=== PATIENT | male | born 1960 | race Caucasian/White ===

== ENCOUNTER 2019-10-10 11:22 | Emergency (ER) | payer BC, OTHER ==
--- NOTE | 2019-10-10 11:49 | EDM.PDOC ---
ED HPI GENERAL MEDICAL PROBLEM - General Chief Complaint: Abdominal Pain Stated Complaint: abdominal pain Time Seen by Provider: 10/10/19 11:34 Source of Information: Reports: Patient History Limitations: Reports: No Limitations - History of Present Illness INITIAL COMMENTS - FREE TEXT/NARRATIVE: Patient is a 59-year-old male who presents presents to the ER with complaints of generalized abdominal pain, worse in the left lower quadrant. The symptoms have been occurring since . Patient states that he feels that he has been somewhat constipated recently. He states he did have a bowel movement early Friday morning and that his symptoms felt slightly better. Since that time he has not had another bowel movement. Symptoms are worsened by eating. He states he feels nauseous after eating but has not vomited. He has a history of diverticulitis. He has not had a fever or chills. Patient also has an umbilical hernia which she states has been gradually getting larger. Abdomen Pain Score (Numeric/FACES): 4 - Related Data Allergies Allergy/AdvReac Type Severity Reaction Status Date / Time No Known Allergies Allergy Verified 10/10/19 11:35 Home Meds: Home Meds . [No Known Home Meds] 10/10/19 [History] Past Medical History Gastrointestinal History: Reports: Other (See Below) Other Gastrointestinal History: diverticulitis, umbilical hernia - Past Surgical History GI Surgical History: Reports: Colonoscopy Social & Family History - Tobacco Use Smoking Status *Q: Current Every Day Smoker Years of Tobacco use: 45 Packs/Tins Daily: 1 - Caffeine Use Caffeine Use: Reports: Coffee - Recreational Drug Use Recreational Drug Use: No ED ROS GENERAL - Review of Systems Review Of Systems: Comprehensive ROS is negative, except as noted in HPI. ED EXAM, GI/ABD - Physical Exam Exam: See Below Exam Limited By: No Limitations General Appearance: Alert, WD/WN, No Apparent Distress Respiratory/Chest: No Respiratory Distress, Lungs Clear, Normal Breath Sounds, No Accessory Muscle Use, Chest Non-Tender Cardiovascular: Normal Peripheral Pulses, Regular Rate, Rhythm, No Edema, No Gallop, No JVD, No Murmur, No Rub GI/Abdominal Exam: Normal Bowel Sounds, Soft, No Distention, No Mass, Tender ( Generalized throughout, worse in the left lower quadrant.), Hernia (Umbilical. Reduces through the defect in the abdominal wall. No evidence of strangulation. ). No: Guarding, Rigid, Rebound Neurological: Alert, Oriented, CN II-XII Intact, Normal Cognition, Normal Gait, Normal Reflexes, No Motor/Sensory Deficits Psychiatric: Normal Affect, Normal Mood Skin Exam: Warm, Dry, Intact, Normal Color, No Rash Course - Vital Signs Last Recorded V/S: Last Vital Signs Temp 98.1 F 10/10/19 11:33 Pulse 88 10/10/19 11:33 Resp 16 10/10/19 11:33 BP 122/81 10/10/19 11:33 Pulse Ox 97 10/10/19 11:33 - Re-Assessments/Exams Free Text/Narrative Re-Assessment/Exam: Stone history and exam, feels like the patient is suffering from constipation. He has not had a fever or chills and the pain is crampy in nature. Worsened by eating. Patient notes that he has been constipated over the last few days. We will complete an abdomen x-ray at this time. 10/10/19 12:38 X-ray of the abdomen does show a collection of stool in the descending colon which would correlate with the area of pain. We will send the patient home with a bottle of magnesium citrate. I did discuss with him that he should drink the entire bottle. If after he has had a significant bowel movement he continues to have the pain, or develops any worsening symptoms such as worsening abdominal pain, fever, chills, vomiting, he should return to the emergency department and we will proceed with a CT of the abdomen at that time. Patient is in agreement with this plan. All questions answered. Discharge instructions as noted. Departure - Departure Time of Disposition: 12:40 Disposition: Home, Self-Care 01 Condition: Fair Clinical Impression: Abdominal pain Qualifiers: Abdominal location: left lower quadrant Qualified Code(s): R10.32 - Left lower quadrant pain - Discharge Information *PRESCRIPTION DRUG MONITORING PROGRAM REVIEWED*: No *COPY OF PRESCRIPTION DRUG MONITORING REPORT IN PATIENT [place]: No Instructions: Abdominal Pain, Adult Referrals: PCP,None [Primary Care Provider] - Forms: ED Department Discharge Additional Instructions: You were seen in the emergency department today for generalized abdominal pain worse in the left lower quadrant. X-ray of the abdomen did show a collection of stool in the left colon which would correlate with the area where you experience in the pain. You been sent home with a bottle of magnesium citrate. I recommend that you drink the entire bottle when you get home. This should produce a number of bowel movements over the course of the afternoon. If you continue to have pain after you have cleared your bowels, or you experience any worsening symptoms such as fever, chills, worsening abdominal pain, or worsening nausea and vomiting we would want to see you back to the emergency department at that point we would proceed with a CT of your abdomen. Sepsis Event Note - Evaluation Sepsis Screening Result: No Definite Risk - Focused Exam Vital Signs: Vital Signs Temp Pulse Resp BP Pulse Ox 10/10/19 11:33 98.1 F 88 16 122/81 97 Date Exam was Performed: 10/10/19 Time Exam was Performed: 12:38
--- NOTE | 2019-10-10 12:15 | CR ---
Abdomen: Supine and upright views the abdomen were obtained. Comparison: No previous study. Mild scoliosis and degenerative change is noted within the spine. Joint spaces within both hips are maintained. Bowel gas pattern is normal. No free air is seen. Impression: 1. Nothing acute is appreciated on 2 view abdominal x-ray. Diagnostic code #2 This report was dictated in [place] Standard Time
[2019-10-10] MEDS ORDERED: Magnesium Citrate Solution 296 ML Bottle PO ONE (12:43)
== END 2019-10-10 12:50 | disposition home or self-care (01) ==
LOC: JD.ED 11:22
DX: R10.32 Left lower quadrant pain (principal); K42.9 Umbilical hernia without obstruction or gangrene; F17.210 Nicotine dependence, cigarettes, uncomplicated
CPT/HCPCS: 74019; 99284; A9270; 99282

== ENCOUNTER 2022-01-28 09:51 | Day surgery (SDC) | payer OTHER ==
[~2022-01-28 09:51] MED LIST: Lactated Ringers 1,000 ML IV SCH; Lidocaine 1%/Sod Bicarbonate in NS 8.4% 1 ML Syringe IDERM PRN; Sodium Chloride 0.9% 10 ML Syringe FLUSH PRN; Sodium Chloride 0.9% 10 ML Syringe FLUSH SCH
[2022-01-28] MEDS ORDERED: Lidocaine 1% 5 ML VIAL ONE (11:26)
[2022-01-28] MEDS ORDERED: Succinylcholine/Sod PF 100 MG/5 ML SYRINGE IV ONE (11:26)
[2022-01-28] MEDS ORDERED: Rocuronium 50 MG/5 ML Vial ONE ×2 (11:26→17:08)
[2022-01-28] MEDS ORDERED: Midazolam 1 MG/ML 2 ML SDV ONE (11:27)
[2022-01-28] MEDS ORDERED: Propofol 200 MG/20 ML SDV ONE (11:27)
[2022-01-28] MEDS ORDERED: fentaNYL 100 MCG/2 ML SDV ONE ×3 (11:27→17:53)
[2022-01-28] MEDS ORDERED: Bupivacaine 0.5%/EPINEPHrine 1:200,000 50 ML MDV ONE (14:37)
[2022-01-28] MEDS ORDERED: ceFAZolin 1 GM Vial ONE (16:02)
[2022-01-28] MEDS ORDERED: Ondansetron 4 MG/2 ML SDV ONE (16:49)
[2022-01-28] MEDS ORDERED: Lactated Ringers 1,000 ML ONE (17:14)
[2022-01-28] MEDS ORDERED: HYDROmorphone 0.5 MG/0.5 ML Syringe ONE ×3 (17:17→18:12)
[2022-01-28] MEDS ORDERED: Dexamethasone 4 MG/ML 5 ML MDV ONE (17:19)
[2022-01-28] MEDS ORDERED: Sugammadex Sodium 200 MG/2 ML VIAL ONE (17:42)
[2022-01-28] MEDS ORDERED: Ondansetron 4 MG/2 ML SDV IVPUSH PRN (18:22)
[2022-01-28] MEDS ORDERED: HYDROmorphone 0.5 MG/0.5 ML Syringe IVPUSH PRN (18:22)
[2022-01-28] MEDS: fentaNYL 100 MCG/2 ML SDV IVPUSH PRN ×2 (18:36→18:52)
== END 2022-01-28 19:52 | disposition home or self-care (01) ==
LOC: JD.SDS 09:51
PROVIDERS: ATTEND Surgery
DX: K42.0 Umbilical hernia with obstruction, without gangrene (principal); L72.3 Sebaceous cyst; F17.210 Nicotine dependence, cigarettes, uncomplicated; K21.9 Gastro-esophageal reflux disease without esophagitis; Z79.899 Other long term (current) drug therapy; Z88.0 Allergy status to penicillin
CPT/HCPCS: 11402; 49653; C1781; J0330; J0690; J1100; J1170; J2250; J2405; J2704; J3010; J3490; J7120; 00790